=== PATIENT | male | born 1950 | race African-American/Black ===

== ENCOUNTER 2025-04-24 03:37 | Emergency (ER) | payer MEDICARE, BC ==
[~2025-04-24] VITALS: Ht 170.2 cm; Wt 109.1 kg
[2025-04-24 03:50] VITALS: BP 148/96; PULSE 63; RESP 18; TEMP 98.5; O2SAT 95
[2025-04-24 04:20] LABS: PLATELET COUNT (AUTO) 201 K/uL (150-450); RED BLOOD CELL COUNT(AUTO) 5.28 MIL/uL (4.50-5.90); RED CELL DISTRIBUTION WIDTH 14.6 % (11.5-14.5); WHITE BLOOD COUNT (AUTO) 8.0 K/uL (4.5-11.0)
[2025-04-24 04:42] LABS: CALCIUM, TOTAL 8.7 mg/dL (8.8-10.5); CREATININE 1.28 mg/dL (0.60-1.30); GLOMERULAR FILTR. RATE CALC > 60 mL/min (>60); GLUCOSE,RANDOM 123 mg/dL (70-110); SODIUM SERUM 138 mmol/L (136-145); UREA NITROGEN, BLOOD 17 mg/dL (7-18)
[2025-04-24 04:50] LABS: TROPONIN I-HIGH SENSITIVITY 12 ng/L (<76)
== END 2025-04-24 05:40 | disposition home or self-care (01) ==
LOC: EMS 03:38
DX: R07.2 Precordial pain (principal); E11.9 Type 2 diabetes mellitus without complications; E78.5 Hyperlipidemia, unspecified; J45.909 Unspecified asthma, uncomplicated; I10 Essential (primary) hypertension
CPT/HCPCS: 71045; 80048; 84484; 85025; 93005; 99285; 36415-L1; 36415-TC